=== PATIENT | female | born 1935 | race Caucasian/White ===

== ENCOUNTER 2020-07-03 12:42 | Emergency (ER) | payer MEDICARE, OTHER | END 2020-07-03 15:51 | disposition home or self-care (01) | LOC: ER1 12:42 | DX: S01.312A Laceration without foreign body of left ear, initial encounter (principal); S50.312A Abrasion of left elbow, initial encounter; I11.0 Hypertensive heart disease with heart failure; I50.9 Heart failure, unspecified; Z86.73 Personal history of transient ischemic attack (TIA), and cerebral infarction without residual deficits; Z88.2 Allergy status to sulfonamides; W10.9XXA Fall (on) (from) unspecified stairs and steps, initial encounter; Y92.009 Unspecified place in unspecified non-institutional (private) residence as the place of occurrence of the external cause | CPT/HCPCS: 70450; 71045; 72125; 73000; 73030; 73080; 99284 ==

== ENCOUNTER 2020-07-06 12:21 | Inpatient (IN) | payer MEDICARE, OTHER ==
[~2020-07-06] VITALS: Ht 162.6 cm; Wt 40.8 kg
[2020-07-06 14:04] LABS: HEMOGLOBIN 9.4 gm/dl (12.3-15.3); RED BLOOD COUNT 3.63 M/UL (4.00-5.10); WHITE BLOOD COUNT 13.3 K/UL (4.5-11.0)
[2020-07-06 14:32] LABS: BUN/CREATININE RATIO 24 (0-10)
[2020-07-06] MEDS ORDERED: ELIQUIS 2.5 MG2.5 MG PO (15:26)
[2020-07-06] MEDS ORDERED: PROTONIX 40 MG40 M1 PO (15:26)
[2020-07-06] MEDS ORDERED: MULTAQ 400 MG400 MG PO (15:26)
[2020-07-06] MEDS ORDERED: KLOR-CON M2020 MEQ PO (15:26)
[2020-07-06] MEDS ORDERED: LASIX40 MG PO (15:27)
[2020-07-06] MEDS ORDERED: MEGACE TAB 40 M40 MG PO (15:27)
[2020-07-06] MEDS ORDERED: LIPITOR40 MG PO (15:27)
[2020-07-06] MEDS ORDERED: KEPPRA500 MG PO (15:27)
[2020-07-06] MEDS ORDERED: LINZESS145 MCG PO (15:28)
[2020-07-06] MEDS ORDERED: LOPRESSOR100 MG PO (15:28)
[2020-07-06] MEDS ORDERED: ASPIRIN EC81 MG PO (15:57)
[2020-07-06] MEDS ORDERED: CLEARLAX119 GM PO (15:58)
[2020-07-06] MEDS ORDERED: BOOST237 ML PO (15:58)
[2020-07-06] MEDS ORDERED: VITAMIN D325 MCG PO (15:59)
[2020-07-07 05:51] LABS: HEMOGLOBIN 7.7 gm/dl (12.3-15.3); WHITE BLOOD COUNT 12.5 K/UL (4.5-11.0)
[2020-07-08 03:44] LABS: HEMOGLOBIN 10.7 gm/dl (12.3-15.3); RED BLOOD COUNT 3.82 M/UL (4.00-5.10); WHITE BLOOD COUNT 8.3 K/UL (4.5-11.0)
[2020-07-08 04:06] LABS: BUN/CREATININE RATIO 23 (0-10)
[2020-07-10 03:11] LABS: HEMOGLOBIN 9.4 gm/dl (12.3-15.3)
[2020-07-10 03:20] LABS: RED BLOOD COUNT 3.36 M/UL (4.00-5.10); WHITE BLOOD COUNT 12.3 K/UL (4.5-11.0)
[2020-07-10 03:28] LABS: BUN/CREATININE RATIO 26 (0-10)
[2020-07-11 06:04] LABS: HEMOGLOBIN 9.8 gm/dl (12.3-15.3); RED BLOOD COUNT 3.53 M/UL (4.00-5.10); WHITE BLOOD COUNT 13.3 K/UL (4.5-11.0)
[2020-07-11 06:40] LABS: BUN/CREATININE RATIO 32 (0-10)
[2020-07-12 08:13] LABS: HEMOGLOBIN 9.6 gm/dl (12.3-15.3); RED BLOOD COUNT 3.48 M/UL (4.00-5.10); WHITE BLOOD COUNT 11.5 K/UL (4.5-11.0)
[2020-07-12 08:52] LABS: BUN/CREATININE RATIO 40 (0-10)
[2020-07-13 04:33] LABS: HEMOGLOBIN 9.1 gm/dl (12.3-15.3); RED BLOOD COUNT 3.29 M/UL (4.00-5.10); WHITE BLOOD COUNT 11.6 K/UL (4.5-11.0)
[2020-07-13] MEDS ORDERED: HYDROCODON-ACE1 EAC4 PO (09:50)
== END 2020-07-13 19:17 | DRG 522 ==
LOC: ER1 12:21 → CDU 15:14 → MED SURG 4 15:14
PROVIDERS: Family Medicine; Internal Medicine; Orthopaedic Surgery; Physician Assistant; ADMIT Internal Medicine
PROC: 0QS03ZZ Reposition Lumbar Vertebra, Percutaneous Approach (ICD-10-PCS; 2020-07-08)
PROC: 0QU03JZ Supplement Lumbar Vertebra with Synthetic Substitute, Percutaneous Approach (ICD-10-PCS; 2020-07-08)
PROC: 0SRB0JA Replacement of Left Hip Joint with Synthetic Substitute, Uncemented, Open Approach (ICD-10-PCS; principal; 2020-07-08 10:12)
DX: S72.012A Unspecified intracapsular fracture of left femur, initial encounter for closed fracture (principal); S32.029A Unspecified fracture of second lumbar vertebra, initial encounter for closed fracture; S42.202A Unspecified fracture of upper end of left humerus, initial encounter for closed fracture; N17.9 Acute kidney failure, unspecified; D62 Acute posthemorrhagic anemia; W19.XXXA Unspecified fall, initial encounter; I48.91 Unspecified atrial fibrillation; I10 Essential (primary) hypertension; E78.5 Hyperlipidemia, unspecified; G40.909 Epilepsy, unspecified, not intractable, without status epilepticus; K59.09 Other constipation; K21.9 Gastro-esophageal reflux disease without esophagitis; I27.20 Pulmonary hypertension, unspecified; Z20.822 Contact with and (suspected) exposure to COVID-19; I25.10 Atherosclerotic heart disease of native coronary artery without angina pectoris; Z95.5 Presence of coronary angioplasty implant and graft; Z86.73 Personal history of transient ischemic attack (TIA), and cerebral infarction without residual deficits; Z82.49 Family history of ischemic heart disease and other diseases of the circulatory system; I48.0 Paroxysmal atrial fibrillation; E87.5 Hyperkalemia; Z95.0 Presence of cardiac pacemaker; Z98.890 Other specified postprocedural states; Z88.2 Allergy status to sulfonamides; M81.0 Age-related osteoporosis without current pathological fracture; E86.0 Dehydration
CPT/HCPCS: ECHO; 36415; 36430; 51702; 70450; 71045; 72125; 72128; 72131; 72170; 73000; 73030; 73080; 73552; 73590; 80048; 80053; 81001; 82550; 82553; 83874; 84484; 85018; 85025; 85027; 85610; 85730; 86850; 86900; 86901; 86920; 90471; 90715; 93005; 93306; 97110-GP-CQ; 97116-GP-CQ; 97162; 97166; 97530; 97530-GP-CQ; 97535; 99284; 99285; C1776; J0690; J2270; J2405; J2704; J3010; J3370; J7050; J7120; P9016; Q9962; U0002